=== PATIENT | female | born 1985 | race Caucasian/White ===

== ENCOUNTER 2019-02-06 09:05 | Emergency (ER) | payer OTHER ==
[~2019-02-06] VITALS: Ht 157.5 cm; Wt 64.1 kg
[2019-02-06] MEDS ORDERED: NS 1,000 ML IV ONE (09:30)
[2019-02-06 09:55] LABS: BASO # 0.1 10^3/uL (0.0-0.2); BASO % 0.4 % (0.0-1.0); EOS # 0.1 10^3/uL (0.0-0.50); EOS % 0.8 % (0.0-3.0); HEMATOCRIT 38.7 % (36.0-47.0); HEMOGLOBIN 13.2 g/dl (12.0-15.5); LYMPH # 2.1 10^3/uL (1.5-4.5); LYMPH % 12.8 % (24.0-44.0); MEAN CORPUSCULAR HEMOGLOBIN 32.1 pg (27.0-33.0); MEAN CORPUSCULAR HGB CONC 34.1 g/dl (32.0-36.5); MEAN CORPUSCULAR VOLUME 94.2 fl (80.0-96.0); MONO # 0.5 10^3/uL (0.0-0.8); MONO % 3.1 % (0.0-5.0); NEUTROPHILS # 13.8 10^3/uL (1.8-7.7); NEUTROPHILS % 82.1 % (36.0-66.0); PLATELET COUNT, AUTOMATED 425 10^3/uL (150-450); RED BLOOD COUNT 4.11 10^6/uL (4.00-5.40); WHITE BLOOD COUNT 16.7 10^3/uL (4.0-10.0)
[2019-02-06] MEDS ORDERED: HYDR1CAP25 PO (10:12)
[2019-02-06] MEDS ORDERED: PANT40TA3 PO (10:12)
[2019-02-06] MEDS ORDERED: ESCI20TA PO (10:12)
[2019-02-06] MEDS ORDERED: GABA600T4 PO ×2 (10:12→10:14)
[2019-02-06] MEDS ORDERED: CYCL10TA PO (10:12)
[2019-02-06] MEDS ORDERED: SUMA50TA2 PO (10:12)
[2019-02-06] MEDS ORDERED: ESCI5SOL3 PO (10:12)
[2019-02-06] MEDS ORDERED: D 101000 PO (10:12)
[2019-02-06] MEDS ORDERED: NICO14DI6 TOP (10:12)
[2019-02-06] MEDS ORDERED: ONDANSETRON 4MG/2ML VIAL (J2405) IV ONE (10:15)
[2019-02-06] MEDS ORDERED: KETOROLAC 30 MG/ML VIAL (J1885) IV ONE (10:15)
[2019-02-06 10:27] LABS: ALBUMIN 3.5 GM/DL (3.2-5.2); ALT/SGPT 14 U/L (12-78); BILIRUBIN,DIRECT < 0.1 MG/DL (0.0-0.2); BILIRUBIN,TOTAL 0.3 MG/DL (0.2-1.0); HCG, SERUM QUANTITATIVE < 1.0 MIU/ML; LIPASE 68 U/L (73-393); TOTAL PROTEIN 7.9 GM/DL (6.4-8.2)
[2019-02-06] MEDS ORDERED: ISOVUE-370 76% 100ML VIAL (Q9967) As Ordered ONE (10:30)
--- NOTE | 2019-02-06 11:03 | REP ---
Clinical: Left lower quadrant pain. Technique: Axial contrast enhanced images from the lung bases to the pubic symphysis with coronal and sagittal re-formations using 100 ml Isovue 370 intravenous contrast material. Findings: Irregular mucosal thickening and pericolonic stranding involves the proximal/mid sigmoid colon within the left lower quadrant with surrounding inflammatory stranding and small amount of free fluid extending into the pelvis. Findings are most compatible with acute diverticulitis. No obstruction or free air to suggest perforation. Remainder of the small large bowel is grossly unremarkable. Liver, spleen, pancreas, gallbladder, bilateral adrenal glands and kidneys are normal. Pelvis demonstrates normal bladder and age-appropriate uterus/adnexa. Small amount of free fluid as described above. No free air. No significant adenopathy. Abdominal aorta without aneurysm or dissection. Musculoskeletal structures are intact. The lung bases are clear. Impression: 1. Acute sigmoid diverticulitis with small amount of free fluid in the pelvis. No evidence for obstruction, perforation, or drainable collection/abscess. Electronically Signed by Mina Parks MD 02/06/2019 10:54 A
[2019-02-06] MEDS ORDERED: metroNIDAZOLE (FLAGYL) 500 MG TAB PO ONE (11:30)
--- NOTE | 2019-02-06 11:37 | REP ---
Clinical: left pelvic pain. Technique: Transabdominal pelvic ultrasound followed by transvaginal examination for better evaluation of the endometrium and adnexa with color Doppler evaluation of the ovaries. Findings: Bladder is unremarkable and measures 8.1 x 5.5 x 5.1 cm. Normal anteverted uterus measures 7.9 x 3.8 x 5.3 cm . The endometrial complex measures 10 mm thickness. No discrete uterine or endometrial abnormalities are appreciated. Bilateral ovaries are normal in appearance and vascularity without evidence for torsion. Right ovary measures 4.6 x 3.0 x 4.1 cm including 3.1 x 2.4 x 4.2 cm hemorrhagic cyst ; R I = 0.62 . Left ovary measures 3.3 x 1.7 x 2.2 cm ; R I = 0.73 . Small amount of free fluid in the posterior cul-de-sac and pelvis is nonspecific. Impression: 1. Essentially normal pelvic ultrasound. 2. Right ovarian hemorrhagic cyst. 3. No evidence for torsion. Electronically Signed by Mina Parks MD 02/06/2019 11:28 A
[2019-02-06] MEDS ORDERED: MORPHINE 2 MG/ML 1ML SYRINGE (J2270) IV ONE (11:45)
[2019-02-06] MEDS ORDERED: CIPROFLOXACIN 500 MG TAB PO ONE (11:45)
[2019-02-06] MEDS ORDERED: CIPR-249 PO (12:02)
[2019-02-06] MEDS ORDERED: FLAG500T PO (12:02)
[2019-02-06 12:23] VITALS: BP 102/65
--- NOTE | 2019-02-10 16:28 | ED PDOC ---
Post-Departure Follow-Up saurabh barrios and yajaira faxed formal report of ct abd/p for fu Talha Garza MD February 10, 2019 16:28
== END 2019-02-06 12:25 | disposition home or self-care (01) ==
LOC: M ED 09:05
DX: N83.201 Unspecified ovarian cyst, right side (principal); K57.32 Diverticulitis of large intestine without perforation or abscess without bleeding; R11.10 Vomiting, unspecified; R93.5 Abnormal findings on diagnostic imaging of other abdominal regions, including retroperitoneum; E78.5 Hyperlipidemia, unspecified; F32.9 Major depressive disorder, single episode, unspecified; F41.9 Anxiety disorder, unspecified; F43.10 Post-traumatic stress disorder, unspecified; Z87.440 Personal history of urinary (tract) infections; F17.210 Nicotine dependence, cigarettes, uncomplicated; F12.10 Cannabis abuse, uncomplicated; Z88.0 Allergy status to penicillin; Z79.899 Other long term (current) drug therapy
CPT/HCPCS: 36415; 74177; 76830; 76856; 80047; 80076; 81001; 83605; 83690; 84702; 85025; 93976; 96374; 96375; 99284; J1885; J2270; J2405; Q9967

== ENCOUNTER 2019-10-09 09:18 | Emergency (ER) | payer OTHER ==
[~2019-10-09] VITALS: Ht 157.5 cm; Wt 62.2 kg
[~2019-10-09 09:18] MED LIST: CIPR-249 PO; CYCL10TA PO; D 101000 PO; ESCI20TA PO; ESCI5SOL3 PO; FLAG500T PO; GABA600T4 PO; HYDR1CAP25 PO; NICO14DI6 TOP; PANT40TA3 PO; SUMA50TA2 PO
[2019-10-09] MEDS ORDERED: ASPIRIN 81 MG CHEW TABLET PO ONE (09:45)
[2019-10-09 10:12] LABS: BASO % 0.5 % (0.0-1.0); EOS # 0.1 10^3/uL (0.0-0.5); EOS % 0.8 % (0.0-3.0); HEMATOCRIT 40.2 % (36.0-47.0); HEMOGLOBIN 13.4 g/dl (12.0-15.5); LYMPH # 2.1 10^3/uL (1.5-5.0); LYMPH % 24.7 % (24.0-44.0); MEAN CORPUSCULAR HEMOGLOBIN 31.4 pg (27.0-33.0); MEAN CORPUSCULAR HGB CONC 33.3 g/dl (32.0-36.5); MEAN CORPUSCULAR VOLUME 94.1 fl (80.0-96.0); MONO # 0.4 10^3/uL (0.0-0.8); MONO % 4.6 % (0.0-5.0); NEUTROPHILS # 5.8 10^3/uL (1.5-8.5); NEUTROPHILS % 68.8 % (36.0-66.0); PLATELET COUNT, AUTOMATED 289 10^3/uL (150-450); RED BLOOD COUNT 4.27 10^6/uL (4.00-5.40); WHITE BLOOD COUNT 8.4 10^3/uL (4.0-10.0)
[2019-10-09 10:37] LABS: HCG, SERUM QUALITATIVE NEGATIVE (NEGATIVE)
[2019-10-09 10:42] LABS: ALBUMIN 3.9 GM/DL (3.2-5.2); ALT/SGPT 24 U/L (12-78); BILIRUBIN,DIRECT < 0.1 MG/DL (0.0-0.2); BILIRUBIN,TOTAL 0.4 MG/DL (0.2-1.0); BLOOD UREA NITROGEN 12 MG/DL (7-18); CALCIUM LEVEL 9.3 MG/DL (8.5-10.1); CARBON DIOXIDE LEVEL 23 MEQ/L (21-32); CHLORIDE LEVEL 111 MEQ/L (98-107); CK-MB VALUE MASS < 1.0 NG/ML (<3.6); CPK CREATINE PHOSPHOKINASE 70 U/L (26-192); CREATININE FOR GFR 0.77 MG/DL (0.55-1.30); FREE T4 0.99 NG/DL (0.76-1.46); GLOMERULAR FILTRATION RATE > 60.0 (>60); GLUCOSE, FASTING 83 MG/DL (70-100); LIPASE 55 U/L (73-393); MB/CK RELATIVE INDEX 1.43 (< OR =4); NT-PRO BNP 79 PG/ML (<125); POTASSIUM SERUM 4.2 MEQ/L (3.5-5.1); SODIUM LEVEL 140 MEQ/L (136-145); TOTAL PROTEIN 7.2 GM/DL (6.4-8.2); TROPONIN I < 0.02 NG/ML (< 0.10)
[2019-10-09] MEDS ORDERED: ISOVUE-370 76% 100ML VIAL (Q9967) As Ordered ONE (10:49)
--- NOTE | 2019-10-09 11:04 | REP ---
AP PORTABLE CHEST: 10/09/2019. Clinical history: Chest pain. Comparison: CT 09/12/2015, chest x-ray 06/29/2013. Findings: Lungs adequately inflated without effusion, infiltrate, atelectasis or mass. No pneumothorax or pneumomediastinum. Heart, mediastinal and hilar contours were grossly normal. The aorta and airway intact. There is a dextrorotatory lower thoracic curve and levorotatory thoracolumbar curve noted as before. Bones otherwise unremarkable. Impression: 1. No acute cardiopulmonary change. Electronically Signed by Camilo Velazquez MD 10/09/2019 10:56 A
--- NOTE | 2019-10-09 11:33 | REP ---
CT ANGIOGRAM CHEST: 10/09/2019. Comparison: AP portable chest 10/09/2019, CT 09/12/2015. Clinical history: Chest pain. Rule out PE. Technique: Bolus of 75 mL Isovue 370, scanning through the chest with our pulmonary angiogram protocol including both MIP and standard reformats in coronal and sagittal planes. Findings: The lung nicolas are well inflated. There is no infiltrate, effusion, nodule or mass. The heart is not enlarged. There is no pericardial thickening or effusion. No pathologic sized mediastinal, hilar, axillary, or supraclavicular mass. The aorta is without aneurysm or dissection. The main, right and left pulmonary arteries are without filling defects. The lobar, segmental and visible subsegmental arteries are without filling defect or vessel cutoff to suggest embolus. Bone windows show the sternum, manubrium, clavicles, visualized portions of scapula clavicular heads and ribs grossly intact. Spine without acute compression deformity of destructive lesion. The upper abdomen is without any acute finding. Impression: 1. Negative CT pulmonary angiogram for pulmonary embolism, infiltrate, effusion, aortic aneurysm or dissection nor other significant finding. No pneumothorax or pneumomediastinum. Bones intact. Electronically Signed by Camilo Velazquez MD 10/09/2019 07:57 P
[2019-10-09 12:00] VITALS: BP 107/71
--- NOTE | 2019-10-09 12:04 | REP ---
LEFT LOWER EXTREMITY DOPPLER VENOUS ULTRASOUND: 10/09/2019. Clinical history: Left calf pain and swelling. Evaluate for DVT. Comparison: None. Technique: The deep venous system of the left lower extremity is evaluated with lainez scale imaging, compression ultrasound, color imaging and duplex Doppler interrogation. Examination from the groin through the popliteal fossa into the proximal calf. Findings: There is full compressibility from the common femoral vein in the inguinal region through the popliteal vein. Color imaging confirms patency throughout the course of the deep venous system. There is respiratory variation and augmented flow at all levels. Impression: 1. No Doppler venous ultrasound evidence of DVT in the left lower extremity. Electronically Signed by Camilo Velazquez MD 10/09/2019 11:56 A
--- NOTE | 2019-10-09 16:39 | ECGEPIP ---
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
== END 2019-10-09 12:16 | disposition home or self-care (01) ==
LOC: M ED 09:18
DX: R07.9 Chest pain, unspecified (principal); I25.2 Old myocardial infarction; E78.5 Hyperlipidemia, unspecified; F41.9 Anxiety disorder, unspecified; F32.9 Major depressive disorder, single episode, unspecified; F17.200 Nicotine dependence, unspecified, uncomplicated; Z79.899 Other long term (current) drug therapy; Z88.0 Allergy status to penicillin
CPT/HCPCS: 71045; 71275; 80048; 80076; 82550; 82553; 83690; 83880; 84439; 84443; 84484; 84703; 85025; 93005; 93041; 93971; 94760; 99285; Q9967

== ENCOUNTER 2019-11-15 09:08 | Emergency (ER) | payer OTHER ==
[~2019-11-15] VITALS: Ht 157.5 cm; Wt 56.8 kg
[2019-11-15] MEDS ORDERED: EPIP0.3I2 IM (09:29)
[2019-11-15] MEDS ORDERED: MORPHINE 4 MG/ML 1ML VIAL/SYRINGE (J2270) IM ONE (09:30)
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
[2019-11-15] MEDS ORDERED: NAPR-837 PO (10:57)
[2019-11-15 11:09] VITALS: BP 130/80
== END 2019-11-15 11:22 | disposition home or self-care (01) ==
LOC: M ED 09:08 → EDBD 09:08 → M ED 11:22
DX: S33.5XXA Sprain of ligaments of lumbar spine, initial encounter (principal); S30.810A Abrasion of lower back and pelvis, initial encounter; W10.9XXA Fall (on) (from) unspecified stairs and steps, initial encounter; Y92.099 Unspecified place in other non-institutional residence as the place of occurrence of the external cause; Y93.9 Activity, unspecified; Y99.9 Unspecified external cause status; G89.29 Other chronic pain; M54.9 Dorsalgia, unspecified; M51.46 Schmorl's nodes, lumbar region; Z88.0 Allergy status to penicillin; Z91.030 Bee allergy status
CPT/HCPCS: 72131; 73610; 96372; 99284; J2270

== ENCOUNTER 2020-10-08 11:15 | Inpatient (IN) | payer MEDICARE, OTHER ==
[~2020-10-08] VITALS: Ht 157.5 cm; Wt 68.2 kg
[~2020-10-08 11:15] MED LIST changes: +CYCL-707 PO; -CYCL10TA PO; +EPIP0.3I2 IM; -ESCI20TA PO; +ESCI20TA16 PO; +NAPR-837 PO; +PANT40TA29 PO; -PANT40TA3 PO
[2020-10-08 11:53] LABS: HEMATOCRIT 41.8 % (36.0-47.0); HEMOGLOBIN 13.6 g/dl (12.0-15.5); MEAN CORPUSCULAR HEMOGLOBIN 31.3 pg (27.0-33.0); MEAN CORPUSCULAR HGB CONC 32.5 g/dl (32.0-36.5); MEAN CORPUSCULAR VOLUME 96.1 fl (80.0-96.0); PLATELET COUNT, AUTOMATED 337 10^3/uL (150-450); RED BLOOD COUNT 4.35 10^6/uL (4.00-5.40); WHITE BLOOD COUNT 10.6 10^3/uL (4.0-10.0)
[2020-10-08 12:20] LABS: HCG, SERUM QUALITATIVE NEGATIVE (NEGATIVE)
[2020-10-08 12:26] LABS: RSV AMPLIFICATION NEGATIVE (NEGATIVE)
[2020-10-08 12:27] LABS: ACETAMINOPHEN LEVEL < 2.0 UG/ML (10.0-30.0); ALBUMIN 4.1 GM/DL (3.2-5.2); ALT/SGPT 60 U/L (12-78); BILIRUBIN,DIRECT 0.1 MG/DL (0.0-0.2); BILIRUBIN,TOTAL 0.2 MG/DL (0.2-1.0); BLOOD UREA NITROGEN 22 MG/DL (7-18); CALCIUM LEVEL 9.5 MG/DL (8.5-10.1); CARBON DIOXIDE LEVEL 28 MEQ/L (21-32); CHLORIDE LEVEL 105 MEQ/L (98-107); CREATININE FOR GFR 0.95 MG/DL (0.55-1.30); ETHYL ALCOHOL (ETHANOL) < 0.003 % (0.000-0.010); GLOMERULAR FILTRATION RATE > 60.0 (>60); GLUCOSE, FASTING 95 MG/DL (70-100); POTASSIUM SERUM 4.3 MEQ/L (3.5-5.1); SALICYLATE LEVEL 2.8 MG/DL (5.0-30.0); SODIUM LEVEL 140 MEQ/L (136-145); TOTAL PROTEIN 7.8 GM/DL (6.4-8.2)
[2020-10-08 13:33] LABS: AMPHETAMINES LEVEL URINE NEGATIVE (NEGATIVE); BARBITURATES URINE NEGATIVE (NEGATIVE); BENZODIAZEPINES URINE NEGATIVE (NEGATIVE); CANNABINOIDS URINE POSITIVE (NEGATIVE); COCAINE METABOLITE URINE NEGATIVE (NEGATIVE); METHADONE URINE NEGATIVE (NEGATIVE); OPIATES URINE NEGATIVE (NEGATIVE); PHENCYCLIDINE URINE NEGATIVE (NEGATIVE)
[2020-10-08] MEDS ORDERED: PANTOPRAZOLE 40MG TAB (PROTONIX) PO ONE (18:45)
[2020-10-08] MEDS ORDERED: TRAZ-257 PO (19:11)
[2020-10-08] MEDS ORDERED: PRAZ1CAP PO (19:11)
[2020-10-08] MEDS ORDERED: ZOLO100T PO (19:11)
[2020-10-08] MEDS ORDERED: HYDR-3363 PO (19:11)
[2020-10-08] MEDS ORDERED: MELA3TAB44 PO (19:11)
--- NOTE | 2020-10-08 20:04 | ECGEPIP ---
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
[2020-10-08] MEDS ORDERED: DEPA250T2 PO (20:19)
[2020-10-08] MEDS ORDERED: hydrOXYzine 25 MG TAB PO STA (21:32)
[2020-10-08] MEDS ORDERED: DIVALPROEX 250MG *ER* TAB PO ONE (21:45)
[2020-10-08] MEDS ORDERED: PRAZOSIN 1 MG CAP PO ONE (21:45)
[2020-10-08] MEDS ORDERED: traZODone 100 MG TAB PO ONE (21:45)
[2020-10-08] MEDS ORDERED: SERTRALINE 100 MG TAB PO ONE (21:45)
[2020-10-09] MEDS ORDERED: PANTOPRAZOLE 40MG TAB (PROTONIX) PO ONE (08:00)
[2020-10-09] MEDS ORDERED: SERTRALINE 100 MG TAB PO ONE (09:00)
[2020-10-09] MEDS ORDERED: hydrOXYzine 25 MG TAB PO STA ×2 (09:29→17:46)
[2020-10-09] MEDS ORDERED: MAALOX 30 ML SUSP *UDC PO PRN (18:15)
[2020-10-09] MEDS ORDERED: ACETAMINOPHEN TAB 650MG DOSE (2X325MG) PO PRN (18:15)
[2020-10-09] MEDS ORDERED: hydrOXYzine 25 MG TAB PO PRN (18:15)
[2020-10-09] MEDS ORDERED: MOM 30ML SUSPENSION UDC PO PRN (18:15)
[2020-10-09 20:44] VITALS: BP 149/85
[2020-10-09] MEDS: SERTRALINE 100 MG TAB PO SCH (20:44)
[2020-10-09] MEDS ORDERED: traZODone 100 MG TAB PO SCH (21:00)
[2020-10-09] MEDS ORDERED: DIVALPROEX 250MG *ER* TAB PO SCH (21:00)
[2020-10-09] MEDS ORDERED: PRAZOSIN 1 MG CAP PO SCH (21:00)
[2020-10-09 21:10] VITALS: BP 140/90
[2020-10-10 06:00] VITALS: BP 122/83
[2020-10-10] MEDS: SERTRALINE 100 MG TAB PO SCH (08:10)
[2020-10-10] MEDS ORDERED: PANTOPRAZOLE 40MG TAB (PROTONIX) PO SCH (09:00)
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
== END 2020-10-10 12:48 | disposition home or self-care (01) | DRG 885 ==
LOC: M ED 11:15 → M ED INP 10-09 18:09 → M PSY 10-09 21:06
PROVIDERS: ADMIT Psychiatry & Neurology Geriatric Psychiatry; ATTEND Psychiatry & Neurology Psychiatry
DX: F31.9 Bipolar disorder, unspecified (principal); F43.10 Post-traumatic stress disorder, unspecified; F17.200 Nicotine dependence, unspecified, uncomplicated; E78.5 Hyperlipidemia, unspecified; K21.9 Gastro-esophageal reflux disease without esophagitis; J45.909 Unspecified asthma, uncomplicated; M54.5 Low back pain; Z91.410 Personal history of adult physical and sexual abuse; Z62.811 Personal history of psychological abuse in childhood; Z63.0 Problems in relationship with spouse or partner; Z79.899 Other long term (current) drug therapy; Z88.0 Allergy status to penicillin; Z91.030 Bee allergy status

== ENCOUNTER 2021-05-21 01:01 | Emergency (ER) | payer OTHER ==
[~2021-05-21] VITALS: Ht 157.5 cm; Wt 78.2 kg
[~2021-05-21 01:01] MED LIST changes: +DEPA250T2 PO; +HYDR-3363 PO; +MELA3TAB44 PO; +PRAZ1CAP PO; +TRAZ-257 PO; +ZOLO100T PO
[2021-05-21] MEDS ORDERED: IBUPROFEN 800 MG TAB PO ONE (02:45)
[2021-05-21] MEDS ORDERED: NORCO 5/325MG TABLET (BULK FOR ED) PO ONE (03:45)
[2021-05-21] MEDS ORDERED: BACITRACIN OINTMENT 30GM TUBE TOP ONE (03:45)
[2021-05-21] MEDS ORDERED: BACI500O21 TOP (03:47)
[2021-05-21 04:14] VITALS: BP 143/98
== END 2021-05-21 04:16 | disposition home or self-care (01) ==
LOC: M ED 01:01
DX: T23.091A Burn of unspecified degree of multiple sites of right wrist and hand, initial encounter (principal); X12.XXXA Contact with other hot fluids, initial encounter; Y92.89 Other specified places as the place of occurrence of the external cause; Y99.0 Civilian activity done for income or pay; J45.909 Unspecified asthma, uncomplicated; F43.10 Post-traumatic stress disorder, unspecified; F31.9 Bipolar disorder, unspecified; E78.5 Hyperlipidemia, unspecified; Z79.899 Other long term (current) drug therapy; Z88.0 Allergy status to penicillin; Z91.030 Bee allergy status; Z87.891 Personal history of nicotine dependence; F12.20 Cannabis dependence, uncomplicated

== ENCOUNTER 2023-05-13 10:48 | Emergency (ER) | payer OTHER ==
[~2023-05-13] VITALS: Ht 157.5 cm; Wt 80.9 kg
[2023-05-13 10:48] VITALS: BP 166/106; TEMP 96.4; O2SAT 100
[~2023-05-13 10:48] MED LIST changes: +BACI500O21 TOP
[2023-05-13] MEDS ORDERED: traMADol 50 MG TAB PO ONE (13:40)
[2023-05-13] MEDS ORDERED: DOXYCYCLINE HYCLATE 100MG TABLET PO ONE (13:40)
[2023-05-13] MEDS ORDERED: DOXY-443 PO (14:12)
== END 2023-05-13 14:30 | disposition home or self-care (01) ==
LOC: M ED 10:48
DX: L66.2 Folliculitis decalvans (principal); L03.90 Cellulitis, unspecified; Z88.0 Allergy status to penicillin; Z91.030 Bee allergy status; J45.909 Unspecified asthma, uncomplicated; R01.1 Cardiac murmur, unspecified; M54.9 Dorsalgia, unspecified; F31.9 Bipolar disorder, unspecified; F41.9 Anxiety disorder, unspecified; F32.A Depression, unspecified; Z79.899 Other long term (current) drug therapy

== ENCOUNTER 2024-06-17 12:04 | Emergency (ER) | payer OTHER ==
[~2024-06-17] VITALS: Ht 157.5 cm; Wt 77.1 kg
[~2024-06-17 12:04] MED LIST changes: +DOXY-441 PO; +GABA-1490 PO; -GABA600T4 PO
[2024-06-17 13:40] LABS: LIPASE 30 U/L (12-53)
[2024-06-17 13:42] LABS: ALKALINE PHOSPHATASE 88 U/L (46-116); ALT/SGPT 12 U/L (7.0-40); AST/SGOT < 8 U/L (<34); BILIRUBIN,DIRECT 0.2 MG/DL (<0.4); BILIRUBIN,TOTAL 0.6 MG/DL (0.3-1.2); BLOOD UREA NITROGEN 16 MG/DL (9-23); CALCIUM LEVEL 9.9 MG/DL (8.5-10.1); CARBON DIOXIDE LEVEL 20 MMOL/L (20-31); CHLORIDE LEVEL 109 MMOL/L (98-107); CREATININE FOR GFR 0.76 MG/DL (0.55-1.30); GLOMERULAR FILTRATION RATE > 60.0 (>60); GLUCOSE, FASTING 86 MG/DL (60-100); POTASSIUM SERUM 4.3 MMOL/L (3.5-5.1); SODIUM LEVEL 136 MMOL/L (136-145); TOTAL PROTEIN 7.5 G/DL (5.7-8.2)
[2024-06-17 14:57] LABS: BASO # 0.1 10^3/uL (0.0-0.2); BASO % 0.5 % (0.0-1.0); EOS # 0.1 10^3/uL (0.0-0.5); EOS % 0.7 % (0.0-3.0); HEMATOCRIT 37.6 % (36.0-47.0); HEMOGLOBIN 12.6 g/dl (12.0-15.5); LYMPH # 2.5 10^3/uL (1.5-5.0); LYMPH % 23.5 % (24.0-44.0); MEAN CORPUSCULAR HGB CONC 33.5 g/dl (32.0-36.5); MEAN CORPUSCULAR VOLUME 92.6 fl (80.0-96.0); MONO # 0.4 10^3/uL (0.0-0.8); MONO % 4.1 % (2.0-8.0); NEUTROPHILS # 7.5 10^3/uL (1.5-8.5); NEUTROPHILS % 70.8 % (36.0-66.0); PLATELET COUNT, AUTOMATED 349 10^3/uL (150-450); RED BLOOD COUNT 4.06 10^6/uL (4.00-5.40); WHITE BLOOD COUNT 10.6 10^3/uL (4.0-10.0)
[2024-06-17] MEDS ORDERED: CEFD1CAP9 PO (15:03)
[2024-06-17] MEDS ORDERED: ISOVUE-370 76% 100ML VIAL As Ordered ONE (15:04)
[2024-06-17] MEDS ORDERED: HOME MED LIST COMPLETE! XX SCH (15:05)
[2024-06-17 15:09] LABS: INR 1.01
[2024-06-17 15:55] VITALS: BP 115/67; TEMP 98.1; O2SAT 100
[2024-06-17] MEDS ORDERED: PROC1AER16 PR (17:12)
== END 2024-06-17 17:23 | disposition home or self-care (01) ==
LOC: M ED 12:04
DX: K64.8 Other hemorrhoids (principal); J45.909 Unspecified asthma, uncomplicated; M54.30 Sciatica, unspecified side; F41.9 Anxiety disorder, unspecified; F32.A Depression, unspecified; F31.9 Bipolar disorder, unspecified; K21.9 Gastro-esophageal reflux disease without esophagitis; F17.200 Nicotine dependence, unspecified, uncomplicated; Z88.0 Allergy status to penicillin; Z91.030 Bee allergy status; Z79.899 Other long term (current) drug therapy
CPT/HCPCS: 36415; 74177; 80048; 80076; 83690; 85025; 85610; 86850; 86900; 86901; 99284; Q9967

== ENCOUNTER → 2024-09-18 | Outpatient (CLI) | payer OTHER ==
[~2024-09-18] MED LIST changes: +CEFD1CAP9 PO; +PROC1AER16 PR
== END ==
LOC: M RAD 11:21
PROVIDERS: ATTEND Physician Assistant Medical
DX: M54.50 Low back pain, unspecified (principal); M46.97 Unspecified inflammatory spondylopathy, lumbosacral region; M50.222 Other cervical disc displacement at C5-C6 level

== ENCOUNTER 2024-09-22 11:05 | Emergency (ER) | payer OTHER ==
[~2024-09-22] VITALS: Ht 157.5 cm; Wt 76.4 kg
[2024-09-22] MEDS: KETOROLAC 30 MG/ML 1ML VIAL IV ONE (13:09)
[2024-09-22 13:44] LABS: BASO # 0.1 10^3/uL (0.0-0.2); BASO % 0.6 % (0.0-1.0); EOS # 0.1 10^3/uL (0.0-0.5); EOS % 1.1 % (0.0-3.0); HEMATOCRIT 38.9 % (36.0-47.0); HEMOGLOBIN 13.1 g/dl (12.0-15.5); LYMPH # 2.8 10^3/uL (1.5-5.0); LYMPH % 29.9 % (24.0-44.0); MEAN CORPUSCULAR HEMOGLOBIN 30.6 pg (27.0-33.0); MEAN CORPUSCULAR HGB CONC 33.7 g/dl (32.0-36.5); MEAN CORPUSCULAR VOLUME 90.9 fl (80.0-96.0); MONO # 0.3 10^3/uL (0.0-0.8); MONO % 3.6 % (2.0-8.0); NEUTROPHILS % 64.4 % (36.0-66.0); PLATELET COUNT, AUTOMATED 355 10^3/uL (150-450); RED BLOOD COUNT 4.28 10^6/uL (4.00-5.40); WHITE BLOOD COUNT 9.3 10^3/uL (4.0-10.0)
[2024-09-22 13:54] LABS: LIPASE 27 U/L (12-53)
[2024-09-22 13:56] LABS: ALBUMIN 3.9 G/DL (3.2-5.2); ALKALINE PHOSPHATASE 78 U/L (35-104); ALT/SGPT 23 U/L (7.0-40); AST/SGOT 13 U/L (<34); BILIRUBIN,DIRECT 0.1 MG/DL (<0.4); BILIRUBIN,TOTAL 0.4 MG/DL (0.3-1.2); HCG, SERUM QUALITATIVE NEGATIVE (NEGATIVE)
[2024-09-22 14:00] LABS: KETONE, URINE AUTO RFX NEGATIVE (NEGATIVE); LEUKOCYTE ESTERASE UR AUTO RFX NEGATIVE (NEGATIVE); MUCUS, URINE RFX SMALL (NEGATIVE); NITRITE, URINE AUTO RFX NEGATIVE (NEGATIVE); RBC, URINE AUTO RFX 0 /HPF (0-3); SQUAM EPITHELIAL CELL UR AURFX 6 /HPF (0-6); WBC, URINE AUTO RFX 1 /HPF (0-3)
[2024-09-22] MEDS ORDERED: ISOVUE-370 76% 100ML VIAL As Ordered ONE (14:20)
[2024-09-22] MEDS: ACETAMINOPHEN *IV* 1,000 MG in IV 1 EA IV ONE (17:27)
[2024-09-22 18:00] VITALS: BP 149/94; TEMP 98; O2SAT 100
== END 2024-09-22 18:37 | disposition home or self-care (01) ==
LOC: M ED 11:05
DX: K42.9 Umbilical hernia without obstruction or gangrene (principal); K57.30 Diverticulosis of large intestine without perforation or abscess without bleeding; R10.30 Lower abdominal pain, unspecified; E78.5 Hyperlipidemia, unspecified; J45.909 Unspecified asthma, uncomplicated; M51.9 Unspecified thoracic, thoracolumbar and lumbosacral intervertebral disc disorder; F17.200 Nicotine dependence, unspecified, uncomplicated
CPT/HCPCS: 74177; 80047; 80076; 81001; 83690; 84703; 85025; 96374; 96375; 99284; J0131; J1885; Q9967